=== PATIENT | female | born 1945 | race Caucasian/White ===

== ENCOUNTER 2017-03-27 08:17 | Outpatient (CLI) | payer MEDICARE, BC ==
[2017-03-27 09:34] LABS: Anion Gap 17 mmol/L (10-20); BUN (Urea Nitrogen) 16 mg/dL (9.8-20.1); Calc. Creatinine Clearance 0 mL/min (70-130); Calcium 9.3 mg/dL (7.8-10.44); Carbon Dioxide 26 mmol/L (23-31); Chloride 103 mmol/L (98-107); Estimated GFR-MDRD 50; Glucose 126 mg/dL (83-110); Potassium 4.5 mmol/L (3.5-5.1); Sodium 141 mmol/L (136-145)
--- NOTE | 2017-03-27 09:45 | ULT ---
BILATERAL RENAL ULTRASOUND: Date: 03/27/17 HISTORY: Chronic renal disease, proteinuria. FINDINGS: The right kidney measures 10.0 cm in length and the left kidney measures 9.5 cm in length. No hydrone phrosis is identified on either side. There is a 2.7 cm cyst arising from the inferior aspect of the left kidney. The urinary bladder is grossly unremarkable. IMPRESSION: Left renal cyst. POS: [facility]
[2017-03-27 10:20] LABS: Bilirubin Negative (Negative); Blood, Urine Negative (Negative); Clarity Clear (Clear); Glucose, Urine (Dipstick) Negative (Negative); Leukocyte Negative (Negative); Nitrite Negative (Negative); Protein, Urine (Dipstick) Negative (Neg-Trace); Urobilinogen 0.2 mg/dL (0.2-1.0); pH, Urine 6.5 (5.0-9.0)
[2017-03-27 10:44] LABS: RBC/HPF 0-3 HPF (0-3)
[2017-03-27 10:45] LABS: Bacteria/HPF Rare-Few HPF (None Seen); Squamous Epithelial 0-3 HPF (0-3); WBC/HPF 0-3 HPF (0-3)
[2017-03-27 19:11] LABS: Creatinine, Urine 29.03 mg/dL (47-110); Protein, Urine Random Quant Less than 10 mg/dL
== END 2017-03-27 08:18 | disposition home or self-care (01) ==
LOC: MADLAB 08:17
PROVIDERS: ATTEND Internal Medicine Nephrology
DX: N18.3 Chronic kidney disease, stage 3 (moderate) (principal); N28.1 Cyst of kidney, acquired
CPT/HCPCS: 36415; 76770; 80048; 81001; 82570; 84156

== ENCOUNTER 2017-06-27 09:58 | Outpatient (CLI) | payer MEDICARE, BC ==
--- NOTE | 2017-06-27 11:34 | ULT ---
ABDOMINAL ULTRASOUND: History: Epigastric pain. FINDINGS: Gallbladder is poorly distended. There is evidence of mild gallbladder wall thickening. There is an e chogenic calculus in the neck of the gallbladder measuring up to 2 cm. Technologist describes a posit madi Colin's sign. Common duct is normal caliber measuring at 3-4 mm. The liver is somewhat heterogeneous suggesting focal areas of fatty sparring. Pancreas is mostly obsc ured. The visualized aorta and IVC appear unremarkable. The spleen is unremarkable. Both kidneys are imaged and appear unremarkable. IMPRESSION: 1. Cholelithiasis. There is evidence of mild thickening of the gallbladder wall and the technologist describes a positive Colin's sign which would suggest cholecystitis. 2. The liver is mildly heterogeneous suggesting areas of fatty sparring. POS: [facility]
== END 2017-06-27 09:59 | disposition home or self-care (01) ==
LOC: MADULT 09:58
PROVIDERS: ATTEND General Practice
DX: R10.13 Epigastric pain (principal); K80.20 Calculus of gallbladder without cholecystitis without obstruction; K76.89 Other specified diseases of liver
CPT/HCPCS: 76700

== ENCOUNTER 2017-10-23 10:00 | Outpatient (CLI) | payer MEDICARE, BC ==
[2017-10-23 10:29] LABS: Anion Gap 18 mmol/L (10-20); BUN (Urea Nitrogen) 18 mg/dL (9.8-20.1); Calc. Creatinine Clearance 0 mL/min (70-130); Calcium 9.6 mg/dL (7.8-10.44); Carbon Dioxide 24 mmol/L (23-31); Chloride 103 mmol/L (98-107); Estimated GFR-MDRD 52; Glucose 122 mg/dL (83-110); Potassium 4.6 mmol/L (3.5-5.1); Sodium 140 mmol/L (136-145)
== END 2017-10-23 10:01 | disposition home or self-care (01) ==
LOC: MADLAB 10:00
PROVIDERS: ATTEND Internal Medicine Nephrology
DX: N18.3 Chronic kidney disease, stage 3 (moderate) (principal)
CPT/HCPCS: 36415; 80048

== ENCOUNTER 2020-02-13 14:18 | Outpatient (CLI) | payer MEDICARE, BC ==
--- NOTE | 2020-02-13 14:55 | RAD ---
EXAM: 3 views of the sacroiliac joints HISTORY: SI pain COMPARISON: None FINDINGS: 3 views of the sacrum shows a symmetric appearance of the sacroiliac joints. No fusion of t he joints is seen. No surrounding erosions are present. No significant sclerosis is seen. IMPRESSION: No significant abnormality
== END 2020-02-13 14:19 | disposition home or self-care (01) ==
LOC: MADLABBHPM 14:18
PROVIDERS: ATTEND Family Medicine
DX: M54.30 Sciatica, unspecified side (principal); R73.9 Hyperglycemia, unspecified
CPT/HCPCS: 36415; 72202; 83036

== ENCOUNTER 2020-07-13 10:32 | Outpatient (CLI) | payer MEDICARE, BC ==
[2020-07-13 11:07] LABS: #Basophils 0.1 thou/uL (0.0-0.2); #Eosinphils 0.1 thou/uL (0.0-0.7); #Lymphocytes 2.1 thou/uL (1.20-3.40); #Monocytes 0.3 thou/uL (0.11-0.59); #Neutrophils 2.9 thou/uL (1.40-6.50); %Basophils 1.2 % (0.0-1.0); %Eosinophils 2.6 % (0.0-10.0); %Lymphocytes 38.7 % (21.0-51.0); %Monocytes 5.9 % (0.0-10.0); %Neutrophils 51.6 % (42.0-75.0); Hemoglobin 13.8 g/dL (12.0-16.0); Mean Corpuscular HGB CONC 31.2 g/dL (32.0-36.0); Mean Corpuscular Hemoglobin 28.8 pg (27.0-31.0); Mean Corpuscular Volume 92.3 fL (78.0-98.0); Platelet Count 186 thou/uL (130-400); RBC Distribution Width 12.5 % (11.5-14.5); Red Blood Cell (RBC) Count 4.81 mill/uL (4.20-5.40); White Blood Cell (WBC) Count 5.5 thou/uL (4.8-10.8)
[2020-07-13 11:27] LABS: ALT (SGPT) 27 U/L (8-55); AST (SGOT) 21 U/L (5-34); Albumin 4.4 g/dL (3.4-4.8); Alkaline Phosphatase 70 U/L (40-110); Anion Gap 13 mmol/L (10-20); BUN (Urea Nitrogen) 25 mg/dL (9.8-20.1); Bilirubin, Total 0.5 mg/dL (0.2-1.2); Calc. Creatinine Clearance 0 mL/min (70-130); Calcium 9.7 mg/dL (7.8-10.44); Carbon Dioxide 29 mmol/L (23-31); Cardiac Risk 3.8 (Less than 4.5); Chloride 104 mmol/L (98-107); Cholesterol 169 mg/dl (< 200 Desired); Glucose 117 mg/dL (83-110); HDL Cholesterol 44 mg/dL (>60 Neg Risk); LDL Cholesterol, Calculated 89 mg/dL; Potassium 4.3 mmol/L (3.5-5.1); Protein, Total 7.4 g/dL (5.8-8.1); Sodium 142 mmol/L (136-145); Triglycerides 182 mg/dL (Less than 150)
[2020-07-13 17:03] LABS: Hemoglobin A1c 6.4 % (4.0-6.0)
== END 2020-07-13 10:33 | disposition home or self-care (01) ==
LOC: MADLAB 10:32
PROVIDERS: ATTEND Family Medicine
DX: Z00.00 Encounter for general adult medical examination without abnormal findings (principal)
CPT/HCPCS: 36415; 80053; 80061; 83036; 85025

== ENCOUNTER 2020-11-01 20:41 | Emergency (ER) | payer MEDICARE, BC ==
[2020-11-01] MEDS ORDERED: Sodium Chloride 0.9% 1,000 ML ONE (21:12)
[2020-11-01 21:22] LABS: #Basophils 0.1 thou/uL (0.0-0.2); #Eosinphils 0.2 thou/uL (0.0-0.7); #Lymphocytes 3.4 thou/uL (1.20-3.40); #Monocytes 0.5 thou/uL (0.11-0.59); %Eosinophils 2.2 % (0.0-10.0); %Lymphocytes 41.7 % (21.0-51.0); %Monocytes 5.7 % (0.0-10.0); %Neutrophils 49.5 % (42.0-75.0); Hemoglobin 13.2 g/dL (12.0-16.0); Mean Corpuscular HGB CONC 32.8 g/dL (32.0-36.0); Mean Corpuscular Volume 91.6 fL (78.0-98.0); Mean Platelet Volume 8.2 fL (7.4-10.4); Platelet Count 185 thou/uL (130-400); RBC Distribution Width 12.5 % (11.5-14.5); White Blood Cell (WBC) Count 8.2 thou/uL (4.8-10.8)
[2020-11-01 21:33] LABS: INR-International Normal Ratio 0.9; PTT 30.3 sec (22.9-36.1); Prothrombin Time 12.3 sec (12.0-14.7)
[2020-11-01 21:42] LABS: ALT (SGPT) 32 U/L (8-55); AST (SGOT) 25 U/L (5-34); Albumin 4.3 g/dL (3.4-4.8); Alkaline Phosphatase 114 U/L (40-110); Anion Gap 17 mmol/L (10-20); BUN (Urea Nitrogen) 20 mg/dL (9.8-20.1); Bilirubin, Total 0.3 mg/dL (0.2-1.2); Calc. Creatinine Clearance 0 mL/min (70-130); Calcium 9.4 mg/dL (7.8-10.44); Carbon Dioxide 26 mmol/L (23-31); Chloride 103 mmol/L (98-107); Globulin 3.1 g/dL (2.4-3.5); Glucose 128 mg/dL (83-110); Potassium 3.8 mmol/L (3.5-5.1); Protein, Total 7.4 g/dL (5.8-8.1); Sodium 142 mmol/L (136-145)
== END 2020-11-01 23:22 | disposition short-term general hospital (02) ==
LOC: MADERS 20:41
DX: K92.2 Gastrointestinal hemorrhage, unspecified (principal); M06.9 Rheumatoid arthritis, unspecified; K74.60 Unspecified cirrhosis of liver; E78.5 Hyperlipidemia, unspecified; I10 Essential (primary) hypertension; K50.90 Crohn's disease, unspecified, without complications; Z79.899 Other long term (current) drug therapy
CPT/HCPCS: 80053; 84484; 85025; 85610; 85730; 93005; 94760; J7050

== ENCOUNTER 2021-06-22 14:09 | Outpatient (CLI) | payer MEDICARE, BC ==
[2021-06-22 14:47] LABS: Anion Gap 14 mmol/L (10-20); BUN (Urea Nitrogen) 20 mg/dL (9.8-20.1); Calc. Creatinine Clearance 0 mL/min (70-130); Calcium 9.4 mg/dL (7.8-10.44); Carbon Dioxide 24 mmol/L (23-31); Chloride 106 mmol/L (98-107); Glucose 117 mg/dL (83-110); Sodium 140 mmol/L (136-145)
== END 2021-06-22 14:10 | disposition home or self-care (01) ==
LOC: MADLAB 14:09
PROVIDERS: ATTEND Internal Medicine Nephrology
DX: N18.30 Chronic kidney disease, stage 3 unspecified (principal)
CPT/HCPCS: 36415; 80048

== ENCOUNTER 2021-09-10 17:05 | Outpatient (CLI) | payer MEDICARE, BC | END 2021-09-10 17:06 | disposition home or self-care (01) | LOC: MADRAD 17:05 | PROVIDERS: ATTEND Surgery | DX: S12.401A Unspecified nondisplaced fracture of fifth cervical vertebra, initial encounter for closed fracture (principal); M50.30 Other cervical disc degeneration, unspecified cervical region | CPT/HCPCS: 72040 ==

== ENCOUNTER 2024-12-24 09:31 | Emergency (ER) | payer MEDICARE | END 2024-12-24 10:43 | disposition home or self-care (01) | LOC: MADERS 09:31 | DX: J01.90 Acute sinusitis, unspecified (principal); B96.89 Other specified bacterial agents as the cause of diseases classified elsewhere; J06.9 Acute upper respiratory infection, unspecified; I12.0 Hypertensive chronic kidney disease with stage 5 chronic kidney disease or end stage renal disease; N18.6 End stage renal disease; E78.5 Hyperlipidemia, unspecified; M06.9 Rheumatoid arthritis, unspecified; K21.9 Gastro-esophageal reflux disease without esophagitis; Z79.899 Other long term (current) drug therapy | CPT/HCPCS: 87428 ==

== ENCOUNTER 2024-12-24 10:56 | Outpatient (CLI) | payer MEDICARE ==
[2024-12-24 11:32] LABS: Anion Gap 15 mmol/L (10-20); BUN (Urea Nitrogen) 17 mg/dL (9.8-20.1); Calc. Creatinine Clearance 0 mL/min (70-130); Calcium 9.7 mg/dL (7.8-10.44); Carbon Dioxide 26 mmol/L (23-31); Chloride 106 mmol/L (98-107); Glucose 111 mg/dL (83-110); Potassium 4.1 mmol/L (3.5-5.1); Sodium 143 mmol/L (136-145)
== END 2024-12-24 10:57 | disposition home or self-care (01) ==
LOC: MADLAB 10:56
PROVIDERS: ATTEND Internal Medicine Nephrology
DX: N18.30 Chronic kidney disease, stage 3 unspecified (principal)
CPT/HCPCS: 36415; 80048; 87428